=== PATIENT | female | born 1985 | race African-American/Black ===

== ENCOUNTER 2019-07-14 18:53 | Emergency (ER) | payer SELFPAY ==
[~2019-07-14] VITALS: Ht 160 cm; Wt 68.0 kg
[~2019-07-14 18:53] MED LIST: DOCU-109 PO; IBUP-1060 PO; OXYC1TAB15 PO
[2019-07-14 19:26] VITALS: BP 127/73
[2019-07-14] MEDS ORDERED: ORPH100T PO (19:31)
--- NOTE | 2019-07-14 19:31 | PHYS DOC ---
Adult General Chief Complaint Chief Complaint: BACK PAIN - NO INJURY [facility] HPI Patient is a 34 year old female presents with back pain that started on Tuesday when she was moving and so she was lifting heavy boxes. The patient states her pain as 8 out of 10 in severity and sharp. The patient describes the pain as being in the lower back to the left of her spine. Has been using ibuprofen and Tylenol at home. (MIKAL DUNHAM APRN) Review of Systems Review of Systems Constitutional: Denies fever or chills [] Eyes: Denies change in visual acuity, redness, or eye pain [] HENT: Denies nasal congestion or sore throat [] Respiratory: Denies cough or shortness of breath [] Cardiovascular: No additional information not addressed in HPI [] GI: Denies abdominal pain, nausea, vomiting, bloody stools or diarrhea [] : Denies dysuria or hematuria [] Musculoskeletal: Reports back pain. Integument: Denies rash or skin lesions [] Neurologic: Denies headache, focal weakness or sensory changes [] Endocrine: Denies polyuria or polydipsia [] Complete systems were reviewed and found to be within normal limits, except as documented in this note. (MIKAL DUNHAM APRN) Allergies Allergies Allergies Coded Allergies Type Severity Reaction Last Updated Verified ketorolac Allergy Unknown ITCHING 07/14/19 Yes (CLARITZA MELENDEZ MD) Physical Exam Physical Exam Constitutional: Well developed, well nourished, no acute distress, non-toxic appearance. [] HENT: Normocephalic, atraumatic, bilateral external ears normal, oropharynx mo ist, no oral exudates, nose normal. [] Eyes: PERRLA, EOMI, conjunctiva normal, no discharge. [] Neck: Normal range of motion, no tenderness, supple, no stridor. [] Cardiovascular:Heart rate regular rhythm, no murmur [] Lungs & Thorax: Bilateral breath sounds clear to auscultation [] Abdomen: Bowel sounds normal, soft, no tenderness, no masses, no pulsatile masses. [] Skin: Warm, dry, no erythema, no rash. [] Back: Tenderness to left side of back on palpation. Extremities: No tenderness, no cyanosis, no clubbing, ROM intact, no edema. [] Neurologic: Alert and oriented X 3, normal motor function, normal sensory function, no focal deficits noted. [] Psychologic: Affect normal, judgement normal, mood normal. [] (MIKAL DUNHAM APRN) Current Patient Data Vital Signs Vital Signs Date Time Temp Pulse Resp B/P (MAP) Pulse Ox O2 Delivery O2 Flow Rate FiO2 07/14/19 19:26 98.7 70 14 127/73 (91) 99 Room Air 98.7 (CLARITZA MELENDEZ MD) EKG EKG [] (MIKAL DUNHAM APRN) Radiology/Procedures Radiology/Procedures [] (MIKAL DUNHAM APRN) Course & Med Decision Making Course & Med Decision Making Pertinent Labs and Imaging studies reviewed. (See chart for details) Will give muscle relaxer to go home on. Did not want IM Norflex in ER. (MIKAL DUNHAM APRN) Course & Med Decision Making Staff Physician Addendum: I was working in the ER during the course of this patient's visit. I was available for consultation as needed, but I was not directly involved in the care of this patient. (CLARITZA MELENDEZ MD) Dragon Disclaimer Dragon Disclaimer This electronic medical record was generated, in whole or in part, using a voice recognition dictation system. (MIKAL DUNHAM APRN) Departure Departure Impression: Primary Impression: Back pain Disposition: 01 HOME, SELF-CARE Condition: STABLE Referrals: NO PCP (PCP) Patient Instructions: Back Pain, Adult Additional Instructions: Thank you for visiting [facility]. We appreciate you trusting us with your care. If any additional problems come up don't hesitate to return to visit us. Please follow up with your primary care provider so they can plan additional care if needed and know about the problem that you had. If symptoms worsen come back to the Emergency Department. Any concerning symptoms that start such as chest pain, shortness of air, weakness or numbness on one side of the body, running high fevers or any other concerning symptoms return to the ER. Please fill your medications at any pharmacy and follow the prescription instructions. As we discussed please do not drive on muscle relaxers as they can make you drowsy, also can use heat or foam rollers as we discussed on muscle. Scripts Orphenadrine Citrate (ORPHENADRINE CITRATE) 100 Mg Tablet.er 1 TAB PO BID PRN for MUSCLE SPASMS, #10 TAB Prov: MIKAL DUNHAM APRN 07/14/19 Problem Qualifiers Primary Impression: Back pain Back pain location: low back pain Chronicity: acute Back pain laterality: left Sciatica presence: without sciatica Qualified Codes: M54.5 - Low back pain MIKAL DUNHAM APRN Jul 14, 2019 19:31 CLARITZA MELENDEZ MD Jul 16, 2019 21:52
== END 2019-07-14 19:40 | disposition home or self-care (01) ==
LOC: ER 18:53
DX: M54.5 Low back pain (principal); Z88.6 Allergy status to analgesic agent; X50.0XXA Overexertion from strenuous movement or load, initial encounter; Y93.89 Activity, other specified; Y92.89 Other specified places as the place of occurrence of the external cause; Y99.8 Other external cause status
CPT/HCPCS: 99283